=== PATIENT | female | born 1945 | race Caucasian/White ===

== ENCOUNTER → 2019-11-15 | Day surgery (SDC) | payer MEDICARE, BC ==
[~2019-11-15] MED LIST: Atropine 0.4 MG/ML SDV IV ONE; Ketamine 200 MG/20 ML MDV IV ONE; Lactated Ringers 1,000 ML IV SCH; Propofol 200 MG/20 ML SDV IV ONE
[2019-11-15 09:35] VITALS: BP 134/53; PULSE 72
--- NOTE | 2019-11-15 10:56 | OR ---
DATE OF OPERATION: 11/15/2019 PREOPERATIVE DIAGNOSIS: HEMATOCHEZIA. POSTOPERATIVE DIAGNOSIS: HEMATOCHEZIA. SURGEON: Lupillo Carrillo MD PROCEDURE: DIAGNOSTIC COLONOSCOPY. ANESTHESIA: MAC. COMPLICATIONS: None. SPECIMEN: None. FINDINGS: 1. Full-length colonoscopy. 2. [id number] rectosigmoid diverticulosis. 3. Mild perianal hemorrhoid disease. RECOMMENDATIONS: 1. Followup scope in 10 years. 2. Medical followup with provider. INDICATIONS: The patient had a prior colonoscopy about 3 or 4 years ago. She presented for evaluation due to hematochezia and heme-positive stool. Alyson sent her for diagnostic scope. DESCRIPTION OF PROCEDURE: The patient was prepped and draped, placed in a left lateral decubitus position. A lubricated Olympus colonoscope was inserted and with ease advanced to the cecum. Direct visualization of ileocecal valve and appendiceal orifice was accomplished. The bowel prep was adequate. Upon withdrawal of the scope, the cecum, ascending, and transverse colon were completely benign. Throughout the entire left colon, the patient had scattered diverticulosis, moderate to severe in nature, extending all the way to the rectosigmoid junction. I could find no signs of polyps, masses, ulceration, or bleeding sites. No vascular abnormalities or signs of colitis. No inflammatory changes were seen. The rectal vault was benign. There was some mild perianal hemorrhoid disease; otherwise, benign. Air was then suctioned, scope removed without complication. RUMA/NINFA /[id number]
== END ==
LOC: CC.SDS 07:56
PROVIDERS: ATTEND Physician Assistant Medical
DX: K57.30 Diverticulosis of large intestine without perforation or abscess without bleeding (principal); K64.8 Other hemorrhoids; E03.9 Hypothyroidism, unspecified; K21.9 Gastro-esophageal reflux disease without esophagitis; I10 Essential (primary) hypertension; E78.5 Hyperlipidemia, unspecified; E66.9 Obesity, unspecified; E55.9 Vitamin D deficiency, unspecified; M06.9 Rheumatoid arthritis, unspecified; R01.1 Cardiac murmur, unspecified; D52.9 Folate deficiency anemia, unspecified; M85.80 Other specified disorders of bone density and structure, unspecified site; Z79.82 Long term (current) use of aspirin; Z79.899 Other long term (current) drug therapy; Z79.890 Hormone replacement therapy; Z98.890 Other specified postprocedural states; Z68.35 Body mass index [BMI] 35.0-35.9, adult
CPT/HCPCS: J0461; J2704; J7120

== ENCOUNTER 2024-07-06 09:46 | Observation (INO) | payer MEDICARE, BC ==
[2024-07-06 10:55] LABS: BASOPHILS ABSOLUTE AUTO 0.03 10^3/uL (0.00-0.50); BASOPHILS PERCENT AUTO 0.2 % (0-1); EOSINOPHILS ABSOLUTE AUTO 0.03 10^3/uL (0.00-1.50); EOSINOPHILS PERCENT AUTO 0.2 % (0-6); HEMATOCRIT 45.6 % (37.0-47.0); IMMATURE GRAN ABSOLUTE AUTO 0.04 10^3/uL (0.00-0.49); IMMATURE GRAN PERCENT AUTO 0.3 % (0.0-4.9); LYMPHOCYTES PERCENT AUTO 20.3 % (24-44); MEAN CORPUSCULAR HGB CONC 32.9 g/dL (32.0-36.0); MEAN CORPUSCULAR VOLUME 103.4 fL (83.0-97.0); MONOCYTES ABSOLUTE AUTO 1.56 10^3/uL (0.00-1.50); MONOCYTES PERCENT AUTO 12.7 % (0-10); NEUTROPHILS ABSOLUTE AUTO 8.16 x10^3/uL (1.80-8.00); NEUTROPHILS PERCENT AUTO 66.3 % (41-71); PLATELET COUNT,PLT 287 10^3/uL (150-400); RED BLOOD CELL COUNT 4.41 x10^6/uL (4.00-5.50); WHITE BLOOD CELL COUNT,WBC 12.3 10^3/uL (4.0-11.0)
[2024-07-06 11:10] LABS: ALANINE AMINOTRANSFERASE,ALT 36 U/L (12-78); ALBUMIN 2.9 g/dL (3.4-5.0); ALKALINE PHOSPHATASE 69 U/L (46-116); ASPARTATE AMNIOTRANSFERASE,AST 25 U/L (15-37); BILIRUBIN TOTAL 0.7 mg/dL (0.0-1.0); BLOOD UREA NITROGEN,BUN 44 mg/dL (7-18); C-REACTIVE PROTEIN 6.12 mg/dL (<=0.50); CALCIUM 10.3 mg/dL (8.4-10.1); CARBON DIOXIDE,CO2 33 mmol/L (21-32); CHLORIDE,CL 96 mEq/L (98-106); GLUCOSE RANDOM 93 mg/dL (75-99); POTASSIUM,K 3.8 mEq/L (3.5-5.0); PROTEIN TOTAL,TP 6.6 g/dL (6.4-8.2); SODIUM,NA 136 mEq/L (136-145)
[2024-07-06 11:11] LABS: ESTIMATED GFR 25 mL/min (>=60)
[2024-07-06 11:31] LABS: CORONAVIRUS COVID-19 NAA NEGATIVE (NEGATIVE); INFLUENZA A NAA NEGATIVE (NEGATIVE); INFLUENZA B NAA NEGATIVE (NEGATIVE); RESPIRATORY SYNCYTIAL VIR NAA NEGATIVE (NEGATIVE)
[2024-07-06] MEDS ORDERED: Sodium Chloride 0.9% 10 ML Syringe FLUSH PRN (11:45)
[2024-07-06] MEDS ORDERED: Ondansetron 4 MG Tab.DIS PO PRN (15:06)
[2024-07-06] MEDS ORDERED: Ondansetron 4 MG/2 ML SDV IV PRN (15:06)
[2024-07-06] MEDS ORDERED: Acetaminophen 325 MG Tab PO PRN (15:06)
[2024-07-06] MEDS: Sodium Chloride 0.9% 1,000 ML IV SCH (16:32)
[2024-07-06] MEDS: guaiFENesin 200 MG Tab PO SCH (16:32)
[2024-07-06] MEDS: methylPREDNISolone Sodium Succinate 40 MG/1 ML SDV IVPUSH ONE (16:32)
[2024-07-06] MEDS: atorvaSTATin 10 MG Tab PO SCH (19:20)
[2024-07-06] MEDS: Magnesium Oxide 400 MG Tab PO SCH (19:20)
[2024-07-06] MEDS ORDERED: MELATONIN PO SCH (20:00)
[2024-07-07] MEDS: Levothyroxine 88 MCG Tab PO SCH (07:28)
[2024-07-07 07:56] LABS: BASOPHILS ABSOLUTE AUTO 0.02 10^3/uL (0.00-0.50); BASOPHILS PERCENT AUTO 0.2 % (0-1); EOSINOPHILS ABSOLUTE AUTO 0.01 10^3/uL (0.00-1.50); EOSINOPHILS PERCENT AUTO 0.1 % (0-6); HEMATOCRIT 41.1 % (37.0-47.0); HEMOGLOBIN 13.5 g/dL (12.0-16.0); IMMATURE GRAN ABSOLUTE AUTO 0.07 10^3/uL (0.00-0.49); IMMATURE GRAN PERCENT AUTO 0.7 % (0.0-4.9); LYMPHOCYTES ABSOLUTE AUTO 2.46 10^3/uL (0.60-5.00); LYMPHOCYTES PERCENT AUTO 22.9 % (24-44); MEAN CORPUSCULAR HGB CONC 32.8 g/dL (32.0-36.0); MEAN CORPUSCULAR VOLUME 103.5 fL (83.0-97.0); MONOCYTES ABSOLUTE AUTO 0.41 10^3/uL (0.00-1.50); MONOCYTES PERCENT AUTO 3.8 % (0-10); NEUTROPHILS ABSOLUTE AUTO 7.78 x10^3/uL (1.80-8.00); NEUTROPHILS PERCENT AUTO 72.3 % (41-71); PLATELET COUNT,PLT 253 10^3/uL (150-400); RED BLOOD CELL COUNT 3.97 x10^6/uL (4.00-5.50); WHITE BLOOD CELL COUNT,WBC 10.8 10^3/uL (4.0-11.0)
[2024-07-07] MEDS ORDERED: ACETAMINOPHEN 650 MG PO SCH (08:00)
[2024-07-07] MEDS: Aspirin 81 MG Tab.EC PO SCH (08:06)
[2024-07-07] MEDS: Calcium Carbonate/Vitamin D3 1250 MG-5 MCG Tab PO SCH (08:06)
[2024-07-07] MEDS: Losartan 100 MG Tab PO SCH (08:06)
[2024-07-07] MEDS: methylPREDNISolone Sodium Succinate 40 MG/1 ML SDV IVPUSH SCH (08:06)
[2024-07-07] MEDS: Hydrochlorothiazide 25 MG Tab PO SCH (08:06)
[2024-07-07] MEDS: Cholecalciferol (Vitamin D3) 25 MCG Tab PO SCH (08:06)
[2024-07-07] MEDS: Folic Acid 1 MG Tab PO SCH (08:06)
[2024-07-07] MEDS: Allopurinol 100 MG Tab PO SCH (08:06)
[2024-07-07 08:18] LABS: ALBUMIN 2.4 g/dL (3.4-5.0); BILIRUBIN TOTAL 0.4 mg/dL (0.0-1.0); C-REACTIVE PROTEIN 8.28 mg/dL (<=0.50); CALCIUM 9.5 mg/dL (8.4-10.1); CREATININE 1.6 mg/dL (0.6-1.0); EST CRCL DRUG DOSING (CG) 23.97 mL/min; PROTEIN TOTAL,TP 5.8 g/dL (6.4-8.2)
[2024-07-07 12:45] VITALS: BP 118/68; PULSE 68
== END 2024-07-07 12:25 | disposition home or self-care (01) ==
LOC: CC.ED 09:46 → CC.MS 12:22 → UNDOADMOB 12:22 → CC.MS 12:24 → UNDOADMOB 12:30 → CC.MS 12:30 → UNDODISOB 07-07 12:25
PROVIDERS: ADMIT Nurse Practitioner Family; ATTEND Nurse Practitioner Family
DX: N17.9 Acute kidney failure, unspecified (principal); J98.9 Respiratory disorder, unspecified; E78.00 Pure hypercholesterolemia, unspecified; I10 Essential (primary) hypertension; E03.9 Hypothyroidism, unspecified; R05.1 Acute cough; Z20.822 Contact with and (suspected) exposure to COVID-19; Z79.82 Long term (current) use of aspirin; Z79.899 Other long term (current) drug therapy; Z79.890 Hormone replacement therapy
CPT/HCPCS: 0241U; 36415; 71046; 80053; 85025; 86140; 96374; 96376; 99285; A9270-GY; G0378; J2919; J7030

== ENCOUNTER 2024-07-16 12:04 | Inpatient (IN) | payer MEDICARE, BC ==
[2024-07-16] MEDS ORDERED: Sodium Chloride 0.9% 10 ML Syringe FLUSH PRN (14:05)
[2024-07-16] MEDS ORDERED: Ondansetron 4 MG/2 ML SDV IV PRN (14:05)
[2024-07-16] MEDS ORDERED: Ondansetron 4 MG Tab.DIS PO PRN (14:05)
[2024-07-16] MEDS ORDERED: Acetaminophen 650 MG Supp RECTAL PRN (14:05)
[2024-07-16] MEDS: Magnesium Sulf/Wat 2 GM/50 mL 2 GM in Premix Bag 1 BAG IV ONE (14:35)
[2024-07-16 16:45] LABS: APPEARANCE,URINE CLEAR (CLEAR); BILIRUBIN,URINE NEGATIVE (NEGATIVE); COLOR,URINE YELLOW (YELLOW); GLUCOSE,URINE NEGATIVE (NEGATIVE); KETONES,URINE NEGATIVE (NEGATIVE); LEUKOCYTE ESTERASE,URINE MODERATE (NEGATIVE); NITRITE,URINE NEGATIVE (NEGATIVE); OCCULT BLOOD,URINE NEGATIVE (NEGATIVE); PH,URINE 5.5 (4.5-8.0); PROTEIN,URINE NEGATIVE (NEGATIVE); UROBILINOGEN,URINE 0.2 EU/dL (0.2-1.0)
[2024-07-16 16:48] LABS: BACTERIA,URINE FEW /HPF (NOT SEEN); RBC,URINE NOT SEEN /HPF (0-5); SQUAMOUS EPITHELIAL CELLS,UR MANY /HPF (NOT SEEN)
[2024-07-16] MEDS: Potassium Chloride Riders 20 MEQ in Premix Bag 1 BAG IV ONE (17:03)
[2024-07-16] MEDS: NS + KCl 20mEq/L 1,000 ML IV SCH (17:29)
[2024-07-16] MEDS: Sodium Chloride 0.9% 500 ML IV ONE (18:54)
[2024-07-16] MEDS: Magnesium Oxide 400 MG Tab PO SCH (19:57)
[2024-07-16] MEDS: Potassium Chloride 10 MEQ Tab.ER PO SCH (19:57)
[2024-07-16] MEDS: Methotrexate 2.5 MG Tab PO SCH (19:58)
[2024-07-16] MEDS: atorvaSTATin 10 MG Tab PO SCH (19:58)
[2024-07-17] MEDS: Acetaminophen 325 MG Tab PO PRN (01:39)
[2024-07-17] MEDS: Levothyroxine 88 MCG Tab PO SCH (06:10)
[2024-07-17 07:53] LABS: BASOPHILS ABSOLUTE AUTO 0.06 10^3/uL (0.00-0.50); BASOPHILS PERCENT AUTO 0.7 % (0-1); EOSINOPHILS ABSOLUTE AUTO 0.12 10^3/uL (0.00-1.50); EOSINOPHILS PERCENT AUTO 1.4 % (0-6); HEMATOCRIT 35.2 % (37.0-47.0); HEMOGLOBIN 11.6 g/dL (12.0-16.0); IMMATURE GRAN ABSOLUTE AUTO 0.02 10^3/uL (0.00-0.49); IMMATURE GRAN PERCENT AUTO 0.2 % (0.0-4.9); LYMPHOCYTES ABSOLUTE AUTO 2.12 10^3/uL (0.60-5.00); MEAN CORPUSCULAR HEMOGLOBIN 34.2 pg (27.0-32.0); MEAN CORPUSCULAR VOLUME 103.8 fL (83.0-97.0); MONOCYTES PERCENT AUTO 10.2 % (0-10); NEUTROPHILS ABSOLUTE AUTO 5.61 x10^3/uL (1.80-8.00); NEUTROPHILS PERCENT AUTO 63.5 % (41-71); PLATELET COUNT,PLT 203 10^3/uL (150-400); RED BLOOD CELL COUNT 3.39 x10^6/uL (4.00-5.50); WHITE BLOOD CELL COUNT,WBC 8.8 10^3/uL (4.0-11.0)
[2024-07-17 08:04] LABS: ALBUMIN 1.9 g/dL (3.4-5.0); BILIRUBIN TOTAL 0.4 mg/dL (0.0-1.0); C-REACTIVE PROTEIN 11.49 mg/dL (<=0.50); CALCIUM 8.8 mg/dL (8.4-10.1); CREATININE 1.3 mg/dL (0.6-1.0); EST CRCL DRUG DOSING (CG) 29.5 mL/min; MAGNESIUM 1.8 mg/dL (1.8-2.4); POTASSIUM,K 3.3 mEq/L (3.5-5.0); PROTEIN TOTAL,TP 5.2 g/dL (6.4-8.2)
[2024-07-17] MEDS: Allopurinol 100 MG Tab PO SCH (08:34)
[2024-07-17] MEDS: Magnesium Oxide 400 MG Tab PO SCH (08:34)
[2024-07-17] MEDS: Cholecalciferol (Vitamin D3) 25 MCG Tab PO SCH (08:34)
[2024-07-17] MEDS: Calcium Carbonate/Vitamin D3 1250 MG-5 MCG Tab PO SCH (08:34)
[2024-07-17] MEDS: Hydrochlorothiazide 25 MG Tab PO SCH (08:39)
[2024-07-17] MEDS: Losartan 100 MG Tab PO SCH (08:39)
[2024-07-17] MEDS: Enoxaparin 40 MG/0.4 ML Syringe SUBCUT SCH (12:02)
[2024-07-17 12:50] LABS: CORONAVIRUS COVID-19 NAA NEGATIVE (NEGATIVE); INFLUENZA A NAA NEGATIVE (NEGATIVE); INFLUENZA B NAA NEGATIVE (NEGATIVE); RESPIRATORY SYNCYTIAL VIR NAA NEGATIVE (NEGATIVE)
[2024-07-17] MEDS: Cefuroxime 250 MG Tab PO SCH (17:10)
[2024-07-18] MEDS: Lactobacillus Rhamnosus GG (Probiotic) Cap PO SCH (07:34)
[2024-07-18] MEDS: Folic Acid 1 MG Tab PO SCH (07:34)
[2024-07-18 08:56] LABS: APPEARANCE,URINE SLIGHTLY CLOUDY (CLEAR); BILIRUBIN,URINE NEGATIVE (NEGATIVE); COLOR,URINE YELLOW (YELLOW); GLUCOSE,URINE NEGATIVE (NEGATIVE); KETONES,URINE NEGATIVE (NEGATIVE); LEUKOCYTE ESTERASE,URINE LARGE (NEGATIVE); NITRITE,URINE NEGATIVE (NEGATIVE); OCCULT BLOOD,URINE NEGATIVE (NEGATIVE); PH,URINE 8.5 (4.5-8.0); PROTEIN,URINE NEGATIVE (NEGATIVE); UROBILINOGEN,URINE 0.2 EU/dL (0.2-1.0)
[2024-07-18 09:04] LABS: BACTERIA,URINE FEW /HPF (NOT SEEN); RBC,URINE 0-5 /HPF (0-5); SQUAMOUS EPITHELIAL CELLS,UR FEW /HPF (NOT SEEN); WBC,URINE 50-75 /HPF (0-5)
[2024-07-18 09:20] LABS: BASOPHILS ABSOLUTE AUTO 0.05 10^3/uL (0.00-0.50); BASOPHILS PERCENT AUTO 0.5 % (0-1); EOSINOPHILS ABSOLUTE AUTO 0.15 10^3/uL (0.00-1.50); EOSINOPHILS PERCENT AUTO 1.4 % (0-6); HEMATOCRIT 41.7 % (37.0-47.0); HEMOGLOBIN 13.3 g/dL (12.0-16.0); IMMATURE GRAN ABSOLUTE AUTO 0.01 10^3/uL (0.00-0.49); IMMATURE GRAN PERCENT AUTO 0.1 % (0.0-4.9); LYMPHOCYTES ABSOLUTE AUTO 2.52 10^3/uL (0.60-5.00); LYMPHOCYTES PERCENT AUTO 23.5 % (24-44); MEAN CORPUSCULAR HEMOGLOBIN 33.5 pg (27.0-32.0); MEAN CORPUSCULAR HGB CONC 31.9 g/dL (32.0-36.0); MONOCYTES ABSOLUTE AUTO 0.96 10^3/uL (0.00-1.50); NEUTROPHILS ABSOLUTE AUTO 7.02 x10^3/uL (1.80-8.00); NEUTROPHILS PERCENT AUTO 65.5 % (41-71); PLATELET COUNT,PLT 217 10^3/uL (150-400); RED BLOOD CELL COUNT 3.97 x10^6/uL (4.00-5.50); WHITE BLOOD CELL COUNT,WBC 10.7 10^3/uL (4.0-11.0)
[2024-07-18 10:51] LABS: ALBUMIN 2.2 g/dL (3.4-5.0); BILIRUBIN TOTAL 0.5 mg/dL (0.0-1.0); CALCIUM 9.7 mg/dL (8.4-10.1); CREATININE 1.3 mg/dL (0.6-1.0); EST CRCL DRUG DOSING (CG) 29.5 mL/min; POTASSIUM,K 4.1 mEq/L (3.5-5.0)
[2024-07-18] MEDS: Sodium Chloride 0.9% 500 ML IV SCH (11:37)
[2024-07-18] MEDS: cefTRIAXone 1 GM Vial IVPUSH SCH (11:37)
[2024-07-18] MEDS: Benzonatate 100 MG Cap PO PRN (20:44)
[2024-07-19 07:40] LABS: BASOPHILS ABSOLUTE AUTO 0.06 10^3/uL (0.00-0.50); BASOPHILS PERCENT AUTO 0.7 % (0-1); EOSINOPHILS PERCENT AUTO 2.2 % (0-6); HEMOGLOBIN 13.2 g/dL (12.0-16.0); IMMATURE GRAN ABSOLUTE AUTO 0.03 10^3/uL (0.00-0.49); IMMATURE GRAN PERCENT AUTO 0.3 % (0.0-4.9); LYMPHOCYTES ABSOLUTE AUTO 2.37 10^3/uL (0.60-5.00); LYMPHOCYTES PERCENT AUTO 25.8 % (24-44); MEAN CORPUSCULAR HEMOGLOBIN 33.8 pg (27.0-32.0); MEAN CORPUSCULAR HGB CONC 32.2 g/dL (32.0-36.0); MEAN CORPUSCULAR VOLUME 105.1 fL (83.0-97.0); MONOCYTES ABSOLUTE AUTO 0.94 10^3/uL (0.00-1.50); MONOCYTES PERCENT AUTO 10.2 % (0-10); NEUTROPHILS PERCENT AUTO 60.8 % (41-71); PLATELET COUNT,PLT 212 10^3/uL (150-400); WHITE BLOOD CELL COUNT,WBC 9.2 10^3/uL (4.0-11.0)
[2024-07-19 08:13] LABS: BILIRUBIN TOTAL 0.5 mg/dL (0.0-1.0); CALCIUM 9.4 mg/dL (8.4-10.1); CREATININE 1.2 mg/dL (0.6-1.0); EST CRCL DRUG DOSING (CG) 31.96 mL/min; MAGNESIUM 1.5 mg/dL (1.8-2.4); POTASSIUM,K 4.8 mEq/L (3.5-5.0); PROTEIN TOTAL,TP 5.9 g/dL (6.4-8.2)
[2024-07-19] MEDS: Magnesium Sulf/Wat 2 GM/50 mL 2 GM in Premix Bag 1 BAG IV ONE (10:27)
[2024-07-20 09:13] VITALS: BP 138/88; PULSE 81
[2024-07-20 09:42] LABS: BASOPHILS ABSOLUTE AUTO 0.05 10^3/uL (0.00-0.50); BASOPHILS PERCENT AUTO 0.6 % (0-1); EOSINOPHILS ABSOLUTE AUTO 0.14 10^3/uL (0.00-1.50); EOSINOPHILS PERCENT AUTO 1.6 % (0-6); HEMATOCRIT 41.8 % (37.0-47.0); HEMOGLOBIN 13.4 g/dL (12.0-16.0); IMMATURE GRAN ABSOLUTE AUTO 0.02 10^3/uL (0.00-0.49); IMMATURE GRAN PERCENT AUTO 0.2 % (0.0-4.9); LYMPHOCYTES ABSOLUTE AUTO 1.84 10^3/uL (0.60-5.00); LYMPHOCYTES PERCENT AUTO 21.7 % (24-44); MEAN CORPUSCULAR HEMOGLOBIN 33.8 pg (27.0-32.0); MEAN CORPUSCULAR HGB CONC 32.1 g/dL (32.0-36.0); MEAN CORPUSCULAR VOLUME 105.3 fL (83.0-97.0); MONOCYTES ABSOLUTE AUTO 0.86 10^3/uL (0.00-1.50); MONOCYTES PERCENT AUTO 10.1 % (0-10); NEUTROPHILS ABSOLUTE AUTO 5.58 x10^3/uL (1.80-8.00); NEUTROPHILS PERCENT AUTO 65.8 % (41-71); PLATELET COUNT,PLT 236 10^3/uL (150-400); RED BLOOD CELL COUNT 3.97 x10^6/uL (4.00-5.50); WHITE BLOOD CELL COUNT,WBC 8.5 10^3/uL (4.0-11.0)
[2024-07-20 09:50] LABS: CALCIUM 9.6 mg/dL (8.4-10.1); CREATININE 1.3 mg/dL (0.6-1.0); EST CRCL DRUG DOSING (CG) 29.5 mL/min; MAGNESIUM 1.8 mg/dL (1.8-2.4); POTASSIUM,K 5.4 mEq/L (3.5-5.0)
== END 2024-07-20 11:15 | disposition home or self-care (01) | DRG 948 ==
LOC: CC.MS 12:04 → UNDOADMOB 13:54 → CC.MS 13:54 → OBSVTOIN 07-17 12:04
PROVIDERS: ADMIT Physician Assistant Medical; ATTEND Nurse Practitioner
DX: R53.1 Weakness (principal); N30.01 Acute cystitis with hematuria; E83.42 Hypomagnesemia; E87.6 Hypokalemia; J01.90 Acute sinusitis, unspecified; I95.9 Hypotension, unspecified; I10 Essential (primary) hypertension; K21.9 Gastro-esophageal reflux disease without esophagitis; E78.00 Pure hypercholesterolemia, unspecified; M19.90 Unspecified osteoarthritis, unspecified site; D50.9 Iron deficiency anemia, unspecified; E03.9 Hypothyroidism, unspecified; Z79.890 Hormone replacement therapy; Z79.899 Other long term (current) drug therapy
CPT/HCPCS: 0241U; 36415; 70486; 70553; 71250; 80048; 80053; 81001; 82533; 83605; 83735; 85025; 85651; 86140; 87040; 87086; 87088; 96361; 96365; 96366; 96372; 97110-GP; 97161-GP; 99223; 99232; 99233; 99238; A9270-GY; A9579; G0378; J0696; J1650; J3475; J3480; J7040; J8610

== ENCOUNTER 2024-07-31 09:43 | Inpatient (IN) | payer MEDICARE, BC ==
[2024-07-31 10:24] LABS: BASOPHILS ABSOLUTE AUTO 0.04 10^3/uL (0.00-0.50); BASOPHILS PERCENT AUTO 0.3 % (0-1); EOSINOPHILS ABSOLUTE AUTO 0.05 10^3/uL (0.00-1.50); EOSINOPHILS PERCENT AUTO 0.4 % (0-6); HEMATOCRIT 42.1 % (37.0-47.0); HEMOGLOBIN 13.6 g/dL (12.0-16.0); IMMATURE GRAN ABSOLUTE AUTO 0.04 10^3/uL (0.00-0.49); IMMATURE GRAN PERCENT AUTO 0.3 % (0.0-4.9); LYMPHOCYTES ABSOLUTE AUTO 1.05 10^3/uL (0.60-5.00); LYMPHOCYTES PERCENT AUTO 9.1 % (24-44); MEAN CORPUSCULAR HEMOGLOBIN 32.8 pg (27.0-32.0); MEAN CORPUSCULAR HGB CONC 32.3 g/dL (32.0-36.0); MEAN CORPUSCULAR VOLUME 101.4 fL (83.0-97.0); MONOCYTES ABSOLUTE AUTO 0.75 10^3/uL (0.00-1.50); MONOCYTES PERCENT AUTO 6.5 % (0-10); NEUTROPHILS ABSOLUTE AUTO 9.59 x10^3/uL (1.80-8.00); NEUTROPHILS PERCENT AUTO 83.4 % (41-71); PLATELET COUNT,PLT 310 10^3/uL (150-400); RED BLOOD CELL COUNT 4.15 x10^6/uL (4.00-5.50); WHITE BLOOD CELL COUNT,WBC 11.5 10^3/uL (4.0-11.0)
[2024-07-31 10:52] LABS: ALBUMIN 2.3 g/dL (3.4-5.0); BILIRUBIN TOTAL 0.6 mg/dL (0.0-1.0); C-REACTIVE PROTEIN 11.09 mg/dL (<=0.50); CALCIUM 9.5 mg/dL (8.4-10.1); CREATININE 1.3 mg/dL (0.6-1.0); EST CRCL DRUG DOSING (CG) 29.5 mL/min; MAGNESIUM 1.5 mg/dL (1.8-2.4); POTASSIUM,K 3.8 mEq/L (3.5-5.0); PROTEIN TOTAL,TP 6.5 g/dL (6.4-8.2)
[2024-07-31] MEDS: Iopamidol 755 Mg/ML 100 ML Bottle IVPUSH ONE (12:04)
[2024-07-31 12:44] LABS: APPEARANCE,URINE SLIGHTLY CLOUDY (CLEAR); BILIRUBIN,URINE NEGATIVE (NEGATIVE); COLOR,URINE YELLOW (YELLOW); GLUCOSE,URINE NEGATIVE (NEGATIVE); KETONES,URINE NEGATIVE (NEGATIVE); LEUKOCYTE ESTERASE,URINE SMALL (NEGATIVE); NITRITE,URINE NEGATIVE (NEGATIVE); OCCULT BLOOD,URINE NEGATIVE (NEGATIVE); PH,URINE 5.5 (4.5-8.0); PROTEIN,URINE NEGATIVE (NEGATIVE); UROBILINOGEN,URINE 0.2 EU/dL (0.2-1.0)
[2024-07-31 12:57] LABS: BACTERIA,URINE FEW /HPF (NOT SEEN); EPITHELIAL CELLS,URINE MODERATE /HPF (NOT SEEN); RBC,URINE 0-5 /HPF (0-5); WBC,URINE 20-30 /HPF (0-5)
[2024-07-31] MEDS: Sodium Chloride 0.9% 500 ML IV SCH (14:27)
[2024-07-31] MEDS ORDERED: Ondansetron 4 MG/2 ML SDV IV PRN (15:51)
[2024-07-31] MEDS ORDERED: Docusate Sodium 100 MG Cap PO PRN (15:51)
[2024-07-31] MEDS ORDERED: Acetaminophen 325 MG Tab PO PRN (15:51)
[2024-07-31] MEDS ORDERED: Sodium Chloride 0.9% 1,000 ML IV SCH (15:51)
[2024-07-31] MEDS ORDERED: Ondansetron 4 MG Tab.DIS PO PRN (15:51)
[2024-07-31] MEDS: Clindamycin Phosphate in D5W 600 MG in Premix Bag 1 BAG IV SCH (16:19)
[2024-07-31] MEDS: diphenhydrAMINE 25 MG Cap PO SCH (20:46)
[2024-07-31] MEDS: Benzonatate 100 MG Cap PO SCH (20:47)
[2024-07-31] MEDS: Acetaminophen 500 MG Tab PO SCH (20:47)
[2024-08-01] MEDS: Levothyroxine 88 MCG Tab PO SCH (06:07)
[2024-08-01 07:36] LABS: BASOPHILS ABSOLUTE AUTO 0.02 10^3/uL (0.00-0.50); BASOPHILS PERCENT AUTO 0.2 % (0-1); EOSINOPHILS ABSOLUTE AUTO 0.01 10^3/uL (0.00-1.50); EOSINOPHILS PERCENT AUTO 0.1 % (0-6); HEMOGLOBIN 11.7 g/dL (12.0-16.0); IMMATURE GRAN ABSOLUTE AUTO 0.07 10^3/uL (0.00-0.49); IMMATURE GRAN PERCENT AUTO 0.7 % (0.0-4.9); LYMPHOCYTES ABSOLUTE AUTO 1.74 10^3/uL (0.60-5.00); LYMPHOCYTES PERCENT AUTO 17.5 % (24-44); MEAN CORPUSCULAR HGB CONC 32.5 g/dL (32.0-36.0); MEAN CORPUSCULAR VOLUME 101.4 fL (83.0-97.0); MONOCYTES ABSOLUTE AUTO 0.94 10^3/uL (0.00-1.50); MONOCYTES PERCENT AUTO 9.5 % (0-10); NEUTROPHILS ABSOLUTE AUTO 7.15 x10^3/uL (1.80-8.00); PLATELET COUNT,PLT 280 10^3/uL (150-400); RED BLOOD CELL COUNT 3.55 x10^6/uL (4.00-5.50); WHITE BLOOD CELL COUNT,WBC 9.9 10^3/uL (4.0-11.0)
[2024-08-01 07:57] LABS: C-REACTIVE PROTEIN 9.24 mg/dL (<=0.50); CALCIUM 8.9 mg/dL (8.4-10.1); CREATININE 1.1 mg/dL (0.6-1.0); EST CRCL DRUG DOSING (CG) 34.87 mL/min; POTASSIUM,K 3.7 mEq/L (3.5-5.0)
[2024-08-01] MEDS: Calcium Carbonate/Vitamin D3 1250 MG-5 MCG Tab PO SCH (07:57)
[2024-08-01] MEDS: Dexamethasone 4 MG Tab PO SCH (07:57)
[2024-08-01] MEDS: Lactobacillus Rhamnosus GG (Probiotic) Cap PO SCH (07:57)
[2024-08-01] MEDS: Cholecalciferol (Vitamin D3) 25 MCG Tab PO SCH (07:57)
[2024-08-01] MEDS: MAGNESIUM GLYCINATE 665 MG PO SCH (07:59)
[2024-08-01] MEDS: Enoxaparin 30 MG/0.3 ML Syringe SUBCUT SCH (11:34)
[2024-08-02 07:42] LABS: BASOPHILS ABSOLUTE AUTO 0.03 10^3/uL (0.00-0.50); BASOPHILS PERCENT AUTO 0.3 % (0-1); EOSINOPHILS ABSOLUTE AUTO 0.02 10^3/uL (0.00-1.50); EOSINOPHILS PERCENT AUTO 0.2 % (0-6); HEMATOCRIT 34.8 % (37.0-47.0); HEMOGLOBIN 11.4 g/dL (12.0-16.0); IMMATURE GRAN ABSOLUTE AUTO 0.07 10^3/uL (0.00-0.49); IMMATURE GRAN PERCENT AUTO 0.7 % (0.0-4.9); LYMPHOCYTES ABSOLUTE AUTO 1.55 10^3/uL (0.60-5.00); MEAN CORPUSCULAR HEMOGLOBIN 32.9 pg (27.0-32.0); MEAN CORPUSCULAR HGB CONC 32.8 g/dL (32.0-36.0); MEAN CORPUSCULAR VOLUME 100.3 fL (83.0-97.0); MONOCYTES ABSOLUTE AUTO 0.93 10^3/uL (0.00-1.50); MONOCYTES PERCENT AUTO 9.6 % (0-10); NEUTROPHILS ABSOLUTE AUTO 7.06 x10^3/uL (1.80-8.00); NEUTROPHILS PERCENT AUTO 73.2 % (41-71); PLATELET COUNT,PLT 300 10^3/uL (150-400); RED BLOOD CELL COUNT 3.47 x10^6/uL (4.00-5.50); WHITE BLOOD CELL COUNT,WBC 9.7 10^3/uL (4.0-11.0)
[2024-08-02 07:49] LABS: C-REACTIVE PROTEIN 4.68 mg/dL (<=0.50); CALCIUM 9.2 mg/dL (8.4-10.1); CREATININE 1.1 mg/dL (0.6-1.0); EST CRCL DRUG DOSING (CG) 34.87 mL/min; POTASSIUM,K 3.9 mEq/L (3.5-5.0)
[2024-08-03] MEDS: Clindamycin HCl 150 MG Cap PO SCH (05:03)
[2024-08-03] MEDS ORDERED: Clindamycin HCl 150 MG Cap PO SCH (06:00)
[2024-08-03 07:43] LABS: BASOPHILS ABSOLUTE AUTO 0.02 10^3/uL (0.00-0.50); BASOPHILS PERCENT AUTO 0.2 % (0-1); EOSINOPHILS ABSOLUTE AUTO 0.02 10^3/uL (0.00-1.50); EOSINOPHILS PERCENT AUTO 0.2 % (0-6); HEMATOCRIT 39.6 % (37.0-47.0); HEMOGLOBIN 12.7 g/dL (12.0-16.0); IMMATURE GRAN PERCENT AUTO 1.9 % (0.0-4.9); LYMPHOCYTES ABSOLUTE AUTO 1.98 10^3/uL (0.60-5.00); LYMPHOCYTES PERCENT AUTO 19.3 % (24-44); MEAN CORPUSCULAR HEMOGLOBIN 32.7 pg (27.0-32.0); MEAN CORPUSCULAR HGB CONC 32.1 g/dL (32.0-36.0); MEAN CORPUSCULAR VOLUME 102.1 fL (83.0-97.0); MONOCYTES ABSOLUTE AUTO 1.21 10^3/uL (0.00-1.50); MONOCYTES PERCENT AUTO 11.8 % (0-10); NEUTROPHILS ABSOLUTE AUTO 6.85 x10^3/uL (1.80-8.00); NEUTROPHILS PERCENT AUTO 66.6 % (41-71); PLATELET COUNT,PLT 345 10^3/uL (150-400); RED BLOOD CELL COUNT 3.88 x10^6/uL (4.00-5.50); WHITE BLOOD CELL COUNT,WBC 10.3 10^3/uL (4.0-11.0)
[2024-08-03 07:50] LABS: C-REACTIVE PROTEIN 2.73 mg/dL (<=0.50); CALCIUM 9.4 mg/dL (8.4-10.1); CREATININE 1.2 mg/dL (0.6-1.0); EST CRCL DRUG DOSING (CG) 31.96 mL/min; POTASSIUM,K 4.3 mEq/L (3.5-5.0)
[2024-08-03] MEDS ORDERED: Lactobacillus Rhamnosus GG (Probiotic) Cap PO SCH (08:00)
[2024-08-03 08:22] VITALS: BP 127/72; PULSE 58
== END 2024-08-03 10:30 | disposition home or self-care (01) | DRG 159 ==
LOC: SUPCPDRO 09:43 → CC.ED 09:43 → CC.MS 15:02
PROVIDERS: ADMIT Nurse Practitioner Family; ATTEND Nurse Practitioner Family
DX: K04.7 Periapical abscess without sinus (principal); I88.9 Nonspecific lymphadenitis, unspecified; R53.1 Weakness; H26.9 Unspecified cataract; E78.00 Pure hypercholesterolemia, unspecified; I10 Essential (primary) hypertension; K21.9 Gastro-esophageal reflux disease without esophagitis; M19.90 Unspecified osteoarthritis, unspecified site; E03.9 Hypothyroidism, unspecified; D64.9 Anemia, unspecified; E53.8 Deficiency of other specified B group vitamins; E61.1 Iron deficiency; Z79.899 Other long term (current) drug therapy
CPT/HCPCS: 36415; 70491; 71045; 80048; 80053; 81001; 83735; 83880; 84484; 85025; 85651; 86140; 87086; 93005; 93010; 96360; 97110-GP; 97161-GP; 99223; 99232; 99233; 99238; 99285-25; A9270-GY; J0736; J1650; J7040; J8540; Q9967

== ENCOUNTER 2024-08-14 13:27 | Observation (INO) | payer MEDICARE, BC ==
[2024-08-14 13:49] LABS: BASOPHILS ABSOLUTE AUTO 0.05 10^3/uL (0.00-0.50); BASOPHILS PERCENT AUTO 0.5 % (0-1); EOSINOPHILS ABSOLUTE AUTO 0.02 10^3/uL (0.00-1.50); EOSINOPHILS PERCENT AUTO 0.2 % (0-6); HEMATOCRIT 39.6 % (37.0-47.0); HEMOGLOBIN 12.5 g/dL (12.0-16.0); IMMATURE GRAN ABSOLUTE AUTO 0.02 10^3/uL (0.00-0.49); IMMATURE GRAN PERCENT AUTO 0.2 % (0.0-4.9); LYMPHOCYTES ABSOLUTE AUTO 1.29 10^3/uL (0.60-5.00); LYMPHOCYTES PERCENT AUTO 13.1 % (24-44); MEAN CORPUSCULAR HEMOGLOBIN 32.3 pg (27.0-32.0); MEAN CORPUSCULAR HGB CONC 31.6 g/dL (32.0-36.0); MEAN CORPUSCULAR VOLUME 102.3 fL (83.0-97.0); MONOCYTES ABSOLUTE AUTO 0.65 10^3/uL (0.00-1.50); MONOCYTES PERCENT AUTO 6.6 % (0-10); NEUTROPHILS ABSOLUTE AUTO 7.83 x10^3/uL (1.80-8.00); NEUTROPHILS PERCENT AUTO 79.4 % (41-71); PLATELET COUNT,PLT 153 10^3/uL (150-400); RED BLOOD CELL COUNT 3.87 x10^6/uL (4.00-5.50); WHITE BLOOD CELL COUNT,WBC 9.9 10^3/uL (4.0-11.0)
[2024-08-14 14:02] LABS: ALANINE AMINOTRANSFERASE,ALT 42 U/L (12-78); ALBUMIN 2.2 g/dL (3.4-5.0); ALKALINE PHOSPHATASE 121 U/L (46-116); ASPARTATE AMNIOTRANSFERASE,AST 39 U/L (15-37); BILIRUBIN TOTAL 0.6 mg/dL (0.0-1.0); BLOOD UREA NITROGEN,BUN 22 mg/dL (7-18); C-REACTIVE PROTEIN 11.97 mg/dL (<=0.50); CALCIUM 9.3 mg/dL (8.4-10.1); CARBON DIOXIDE,CO2 27 mmol/L (21-32); CHLORIDE,CL 101 mEq/L (98-106); CREATININE 1.3 mg/dL (0.6-1.0); ESTIMATED GFR 42 mL/min (>=60); GLUCOSE RANDOM 122 mg/dL (75-99); MAGNESIUM 1.8 mg/dL (1.8-2.4); SODIUM,NA 137 mEq/L (136-145)
[2024-08-14] MEDS ORDERED: Acetaminophen 325 MG Tab PO PRN (14:06)
[2024-08-14] MEDS ORDERED: Docusate Sodium 100 MG Cap PO PRN (14:06)
[2024-08-14] MEDS ORDERED: Ondansetron 4 MG/2 ML SDV IV PRN (14:06)
[2024-08-14] MEDS ORDERED: Ondansetron 4 MG Tab.DIS PO PRN (14:06)
[2024-08-14] MEDS ORDERED: Polyethylene Glycol 3350 Powder 17 GM Packet PO PRN (14:06)
[2024-08-14] MEDS ORDERED: Benzonatate 100 MG Cap PO PRN (14:08)
[2024-08-14] MEDS ORDERED: traMADol 50 MG Tab PO PRN (14:15)
[2024-08-14] MEDS: Amoxicillin/Clavulanate K 500-125 MG Tab PO SCH (15:35)
[2024-08-14] MEDS: Iopamidol 755 Mg/ML 100 ML Bottle IVPUSH ONE (17:42)
[2024-08-14] MEDS: metroNIDAZOLE/Normal Saline 500 MG in Premix Bag 1 BAG IV SCH (17:59)
[2024-08-14] MEDS: Piperacillin/Tazobactam 4.5 GM in Sodium Chloride 0.9% 100 ML IV ONE (19:06)
[2024-08-14] MEDS: Acetaminophen 500 MG Tab PO SCH (20:13)
[2024-08-14] MEDS: diphenhydrAMINE 25 MG Cap PO SCH (20:14)
[2024-08-14] MEDS: Sodium Chloride 0.9% 1,000 ML IV SCH (21:00)
[2024-08-14] MEDS: Piperacillin/Tazobactam 4.5 GM in Sodium Chloride 0.9% 100 ML IV SCH (21:10)
[2024-08-15] MEDS: Levothyroxine 88 MCG Tab PO SCH (06:17)
[2024-08-15 07:15] LABS: APPEARANCE,URINE CLOUDY (CLEAR); BILIRUBIN,URINE NEGATIVE (NEGATIVE); COLOR,URINE YELLOW (YELLOW); GLUCOSE,URINE NEGATIVE (NEGATIVE); KETONES,URINE NEGATIVE (NEGATIVE); LEUKOCYTE ESTERASE,URINE NEGATIVE (NEGATIVE); NITRITE,URINE NEGATIVE (NEGATIVE); OCCULT BLOOD,URINE NEGATIVE (NEGATIVE); PROTEIN,URINE 30 mg/dL (NEGATIVE); UROBILINOGEN,URINE 0.2 EU/dL (0.2-1.0)
[2024-08-15 07:25] LABS: AMORPHOUS SEDIMENT,URINE MODERATE /HPF (NOT SEEN); EPITHELIAL CELLS,URINE NOT SEEN /HPF (NOT SEEN); RBC,URINE NOT SEEN /HPF (0-5); WBC,URINE NOT SEEN /HPF (0-5)
[2024-08-15 07:30] LABS: BILIRUBIN TOTAL 0.6 mg/dL (0.0-1.0); CALCIUM 8.9 mg/dL (8.4-10.1); CREATININE 1.1 mg/dL (0.6-1.0); EST CRCL DRUG DOSING (CG) 34.87 mL/min; MAGNESIUM 1.8 mg/dL (1.8-2.4); POTASSIUM,K 3.8 mEq/L (3.5-5.0); PROTEIN TOTAL,TP 5.6 g/dL (6.4-8.2)
[2024-08-15] MEDS: Cholecalciferol (Vitamin D3) 25 MCG Tab PO SCH (07:44)
[2024-08-15] MEDS: Lactobacillus Rhamnosus GG (Probiotic) Cap PO SCH (07:44)
[2024-08-15] MEDS: Calcium Carbonate/Vitamin D3 1250 MG-5 MCG Tab PO SCH (07:44)
[2024-08-15 07:48] LABS: BASOPHILS ABSOLUTE AUTO 0.03 10^3/uL (0.00-0.50); BASOPHILS PERCENT AUTO 0.5 % (0-1); EOSINOPHILS ABSOLUTE AUTO 0.07 10^3/uL (0.00-1.50); EOSINOPHILS PERCENT AUTO 1.1 % (0-6); HEMATOCRIT 38.7 % (37.0-47.0); HEMOGLOBIN 12.1 g/dL (12.0-16.0); IMMATURE GRAN ABSOLUTE AUTO 0.01 10^3/uL (0.00-0.49); IMMATURE GRAN PERCENT AUTO 0.2 % (0.0-4.9); LYMPHOCYTES ABSOLUTE AUTO 0.99 10^3/uL (0.60-5.00); LYMPHOCYTES PERCENT AUTO 16.1 % (24-44); MEAN CORPUSCULAR HGB CONC 31.3 g/dL (32.0-36.0); MEAN CORPUSCULAR VOLUME 102.4 fL (83.0-97.0); MONOCYTES ABSOLUTE AUTO 0.42 10^3/uL (0.00-1.50); MONOCYTES PERCENT AUTO 6.8 % (0-10); NEUTROPHILS ABSOLUTE AUTO 4.63 x10^3/uL (1.80-8.00); NEUTROPHILS PERCENT AUTO 75.3 % (41-71); PLATELET COUNT,PLT 150 10^3/uL (150-400); RED BLOOD CELL COUNT 3.78 x10^6/uL (4.00-5.50); WHITE BLOOD CELL COUNT,WBC 6.2 10^3/uL (4.0-11.0)
[2024-08-15] MEDS: MAGNESIUM GLYCINATE 665 MG PO SCH (10:17)
[2024-08-15 11:09] VITALS: BP 133/74; PULSE 72
[2024-08-15] MEDS ORDERED: MAGNESIUM GLYCINATE 665 MG PO SCH (20:00)
== END 2024-08-15 16:50 ==
LOC: INTOOBSV 13:27 → CC.MS 13:27
PROVIDERS: ADMIT Nurse Practitioner; ATTEND Nurse Practitioner
DX: K04.7 Periapical abscess without sinus (principal); M27.2 Inflammatory conditions of jaws; R53.1 Weakness; I10 Essential (primary) hypertension; E78.00 Pure hypercholesterolemia, unspecified; K21.9 Gastro-esophageal reflux disease without esophagitis; E03.9 Hypothyroidism, unspecified; Z79.890 Hormone replacement therapy; Z79.899 Other long term (current) drug therapy
CPT/HCPCS: 36415; 70487; 80053; 81001; 83605; 83735; 85025; 86140; 87040; 96361; 96365; 96366; 96367; 96368; A9270-GY; G0378; J1836; J2543; J7030; Q9967

== ENCOUNTER 2024-08-30 13:32 | Inpatient (IN) | payer MEDICARE, BC ==
[2024-08-30] MEDS ORDERED: Ondansetron 4 MG/2 ML SDV IV PRN (13:56)
[2024-08-30] MEDS ORDERED: Polyethylene Glycol 3350 Powder 17 GM Packet PO PRN (13:56)
[2024-08-30] MEDS ORDERED: Ondansetron 4 MG Tab.DIS PO PRN (13:56)
[2024-08-30] MEDS ORDERED: Docusate Sodium 100 MG Cap PO PRN (13:56)
[2024-08-30] MEDS ORDERED: Ampicillin/Sulbactam 3 GM Vial IVPUSH SCH (14:00)
[2024-08-30] MEDS: Ampicillin/Sulbactam Na 3 GM in Sodium Chloride 0.9% 100 ML IV SCH (14:50)
[2024-08-30] MEDS ORDERED: traMADol 50 MG Tab PO PRN (15:09)
[2024-08-30] MEDS ORDERED: Chlorhexidine Gluconate 0.12% Oral Rinse 15 ML Cup MUCMEM SCH (20:00)
[2024-08-30] MEDS: atorvaSTATin 10 MG Tab PO SCH (20:04)
[2024-08-30] MEDS: Sennosides/Docusate Sodium 50-8.6 MG Tab PO SCH (20:04)
[2024-08-30] MEDS: Bacitracin Oint 1 GM U/D Packet TOP SCH (20:45)
[2024-08-30] MEDS: Chlorhexidine Gluconate 0.12% Oral Rinse 15 ML Cup MUCMEM SCH (20:53)
[2024-08-30] MEDS: diphenhydrAMINE 25 MG Cap PO SCH (20:53)
[2024-08-30] MEDS: Acetaminophen 500 MG Tab PO SCH (20:53)
[2024-08-31] MEDS: Levothyroxine 88 MCG Tab PO SCH (06:33)
[2024-08-31] MEDS: Cholecalciferol (Vitamin D3) 25 MCG Tab PO SCH (08:03)
[2024-08-31] MEDS: Allopurinol 100 MG Tab PO SCH (08:04)
[2024-08-31] MEDS: Lactobacillus Rhamnosus GG (Probiotic) Cap PO SCH (08:04)
[2024-08-31] MEDS: Metoprolol Succinate 25 MG Tab.ER PO SCH (08:04)
[2024-08-31] MEDS: Calcium Carbonate/Vitamin D3 1250 MG-5 MCG Tab PO SCH (08:04)
[2024-09-01] MEDS: Metoprolol Succinate 25 MG Tab.ER PO STA (12:55)
[2024-09-01 18:49] LABS: BASOPHILS ABSOLUTE AUTO 0.04 10^3/uL (0.00-0.50); BASOPHILS PERCENT AUTO 0.5 % (0-1); EOSINOPHILS ABSOLUTE AUTO 0.03 10^3/uL (0.00-1.50); EOSINOPHILS PERCENT AUTO 0.4 % (0-6); HEMATOCRIT 40.2 % (37.0-47.0); HEMOGLOBIN 12.4 g/dL (12.0-16.0); IMMATURE GRAN ABSOLUTE AUTO 0.04 10^3/uL (0.00-0.49); IMMATURE GRAN PERCENT AUTO 0.5 % (0.0-4.9); LYMPHOCYTES ABSOLUTE AUTO 1.72 10^3/uL (0.60-5.00); LYMPHOCYTES PERCENT AUTO 20.1 % (24-44); MEAN CORPUSCULAR HGB CONC 30.8 g/dL (32.0-36.0); MEAN CORPUSCULAR VOLUME 100.5 fL (83.0-97.0); MONOCYTES ABSOLUTE AUTO 0.96 10^3/uL (0.00-1.50); MONOCYTES PERCENT AUTO 11.2 % (0-10); NEUTROPHILS ABSOLUTE AUTO 5.75 x10^3/uL (1.80-8.00); NEUTROPHILS PERCENT AUTO 67.3 % (41-71); PLATELET COUNT,PLT 276 10^3/uL (150-400); WHITE BLOOD CELL COUNT,WBC 8.5 10^3/uL (4.0-11.0)
[2024-09-01 19:06] LABS: ALBUMIN 2.1 g/dL (3.4-5.0); BILIRUBIN TOTAL 0.5 mg/dL (0.0-1.0); CALCIUM 9.9 mg/dL (8.4-10.1); CREATININE 1.2 mg/dL (0.6-1.0); EST CRCL DRUG DOSING (CG) 31.96 mL/min; MAGNESIUM 1.8 mg/dL (1.8-2.4); POTASSIUM,K 3.6 mEq/L (3.5-5.0); PROTEIN TOTAL,TP 6.5 g/dL (6.4-8.2)
[2024-09-01] MEDS: Iopamidol 755 Mg/ML 100 ML Bottle IVPUSH ONE (20:01)
[2024-09-01] MEDS: Oxyquinoline/Emollient 0.3% Oint 4 OZ Canister TOP PRN (23:16)
[2024-09-02] MEDS: Metoprolol Succinate 25 MG Tab.ER PO SCH (07:57)
[2024-09-02] MEDS: MAGNESIUM GLYCINATE 200 MG PO SCH (20:00)
[2024-09-03] MEDS: Mirtazapine 15 MG Tab PO SCH (19:57)
[2024-09-04] MEDS ORDERED: Sennosides/Docusate Sodium 50-8.6 MG Tab PO PRN (08:33)
[2024-09-06 10:52] LABS: BASOPHILS ABSOLUTE AUTO 0.06 10^3/uL (0.00-0.50); BASOPHILS PERCENT AUTO 0.7 % (0-1); EOSINOPHILS ABSOLUTE AUTO 0.03 10^3/uL (0.00-1.50); EOSINOPHILS PERCENT AUTO 0.4 % (0-6); HEMATOCRIT 40.7 % (37.0-47.0); HEMOGLOBIN 12.4 g/dL (12.0-16.0); IMMATURE GRAN ABSOLUTE AUTO 0.02 10^3/uL (0.00-0.49); IMMATURE GRAN PERCENT AUTO 0.2 % (0.0-4.9); LYMPHOCYTES ABSOLUTE AUTO 1.17 10^3/uL (0.60-5.00); LYMPHOCYTES PERCENT AUTO 13.8 % (24-44); MEAN CORPUSCULAR HEMOGLOBIN 30.8 pg (27.0-32.0); MEAN CORPUSCULAR HGB CONC 30.5 g/dL (32.0-36.0); MONOCYTES ABSOLUTE AUTO 0.81 10^3/uL (0.00-1.50); MONOCYTES PERCENT AUTO 9.5 % (0-10); NEUTROPHILS PERCENT AUTO 75.4 % (41-71); PLATELET COUNT,PLT 286 10^3/uL (150-400); RED BLOOD CELL COUNT 4.03 x10^6/uL (4.00-5.50); WHITE BLOOD CELL COUNT,WBC 8.5 10^3/uL (4.0-11.0)
[2024-09-06 11:09] LABS: ALBUMIN 2.1 g/dL (3.4-5.0); BILIRUBIN TOTAL 0.5 mg/dL (0.0-1.0); C-REACTIVE PROTEIN 8.81 mg/dL (<=0.50); CALCIUM 9.8 mg/dL (8.4-10.1); CREATININE 1.2 mg/dL (0.6-1.0); EST CRCL DRUG DOSING (CG) 31.96 mL/min; POTASSIUM,K 4.2 mEq/L (3.5-5.0); PROTEIN TOTAL,TP 6.8 g/dL (6.4-8.2)
[2024-09-06] MEDS: Iopamidol 755 Mg/ML 100 ML Bottle IVPUSH ONE (11:12)
[2024-09-06 16:54] LABS: APPEARANCE,URINE CLEAR (CLEAR); BILIRUBIN,URINE NEGATIVE (NEGATIVE); COLOR,URINE YELLOW (YELLOW); GLUCOSE,URINE NEGATIVE (NEGATIVE); KETONES,URINE NEGATIVE (NEGATIVE); LEUKOCYTE ESTERASE,URINE NEGATIVE (NEGATIVE); NITRITE,URINE NEGATIVE (NEGATIVE); OCCULT BLOOD,URINE NEGATIVE (NEGATIVE); PH,URINE 8.5 (4.5-8.0); PROTEIN,URINE 30 mg/dL (NEGATIVE); UROBILINOGEN,URINE 0.2 EU/dL (0.2-1.0)
[2024-09-06 17:02] LABS: EPITHELIAL CELLS,URINE MODERATE /HPF (NOT SEEN); RBC,URINE 0-5 /HPF (0-5)
[2024-09-06 17:03] LABS: BACTERIA,URINE FEW /HPF (NOT SEEN)
[2024-09-06] MEDS: Mirtazapine 15 MG Tab PO SCH (19:34)
[2024-09-07] MEDS: Acetaminophen 325 MG Tab PO PRN (18:00)
[2024-09-07] MEDS: Lidocaine 2% Viscous Solution 15 ML UD PO ONE (18:40)
[2024-09-10 10:55] LABS: BASOPHILS ABSOLUTE AUTO 0.07 10^3/uL (0.00-0.50); EOSINOPHILS ABSOLUTE AUTO 0.05 10^3/uL (0.00-1.50); EOSINOPHILS PERCENT AUTO 0.7 % (0-6); HEMATOCRIT 36.6 % (37.0-47.0); HEMOGLOBIN 11.2 g/dL (12.0-16.0); IMMATURE GRAN ABSOLUTE AUTO 0.01 10^3/uL (0.00-0.49); IMMATURE GRAN PERCENT AUTO 0.1 % (0.0-4.9); LYMPHOCYTES ABSOLUTE AUTO 0.92 10^3/uL (0.60-5.00); LYMPHOCYTES PERCENT AUTO 13.3 % (24-44); MEAN CORPUSCULAR HEMOGLOBIN 31.4 pg (27.0-32.0); MEAN CORPUSCULAR HGB CONC 30.6 g/dL (32.0-36.0); MEAN CORPUSCULAR VOLUME 102.5 fL (83.0-97.0); MONOCYTES ABSOLUTE AUTO 0.74 10^3/uL (0.00-1.50); MONOCYTES PERCENT AUTO 10.7 % (0-10); NEUTROPHILS ABSOLUTE AUTO 5.14 x10^3/uL (1.80-8.00); NEUTROPHILS PERCENT AUTO 74.2 % (41-71); PLATELET COUNT,PLT 237 10^3/uL (150-400); RED BLOOD CELL COUNT 3.57 x10^6/uL (4.00-5.50); WHITE BLOOD CELL COUNT,WBC 6.9 10^3/uL (4.0-11.0)
[2024-09-10 11:06] LABS: CREATININE 1.1 mg/dL (0.6-1.0); EST CRCL DRUG DOSING (CG) 34.87 mL/min
[2024-09-13] MEDS: Melatonin 3 MG Tab PO SCH (19:37)
[2024-09-16 07:36] LABS: BASOPHILS ABSOLUTE AUTO 0.04 10^3/uL (0.00-0.50); BASOPHILS PERCENT AUTO 0.7 % (0-1); CREATININE 0.8 mg/dL (0.6-1.0); EOSINOPHILS ABSOLUTE AUTO 0.08 10^3/uL (0.00-1.50); EOSINOPHILS PERCENT AUTO 1.3 % (0-6); EST CRCL DRUG DOSING (CG) 47.94 mL/min; HEMATOCRIT 34.8 % (37.0-47.0); HEMOGLOBIN 10.5 g/dL (12.0-16.0); IMMATURE GRAN ABSOLUTE AUTO 0.04 10^3/uL (0.00-0.49); IMMATURE GRAN PERCENT AUTO 0.7 % (0.0-4.9); LYMPHOCYTES ABSOLUTE AUTO 0.77 10^3/uL (0.60-5.00); MEAN CORPUSCULAR HEMOGLOBIN 30.6 pg (27.0-32.0); MEAN CORPUSCULAR HGB CONC 30.2 g/dL (32.0-36.0); MEAN CORPUSCULAR VOLUME 101.5 fL (83.0-97.0); MONOCYTES ABSOLUTE AUTO 0.57 10^3/uL (0.00-1.50); MONOCYTES PERCENT AUTO 9.6 % (0-10); NEUTROPHILS ABSOLUTE AUTO 4.44 x10^3/uL (1.80-8.00); NEUTROPHILS PERCENT AUTO 74.7 % (41-71); PLATELET COUNT,PLT 184 10^3/uL (150-400); RED BLOOD CELL COUNT 3.43 x10^6/uL (4.00-5.50); WHITE BLOOD CELL COUNT,WBC 5.9 10^3/uL (4.0-11.0)
[2024-09-18] MEDS: cefTRIAXone 2 GM Vial IVPUSH ONE (11:27)
[2024-09-18] MEDS: Fluconazole/Normal Saline 200 MG in Premix Bag 1 BAG IV SCH (11:27)
[2024-09-18] MEDS: DAPTOmycin 500 MG Vial IVPUSH ONE (11:29)
[2024-09-19] MEDS: cefTRIAXone 2 GM Vial IVPUSH SCH (07:16)
[2024-09-19] MEDS: DAPTOmycin 500 MG Vial IVPUSH SCH (07:16)
[2024-09-19 07:57] VITALS: BP 167/92; PULSE 89
[2024-09-19 11:50] LABS: BASOPHILS ABSOLUTE AUTO 0.05 10^3/uL (0.00-0.50); BASOPHILS PERCENT AUTO 0.5 % (0-1); EOSINOPHILS ABSOLUTE AUTO 0.07 10^3/uL (0.00-1.50); EOSINOPHILS PERCENT AUTO 0.7 % (0-6); HEMOGLOBIN 12.2 g/dL (12.0-16.0); IMMATURE GRAN ABSOLUTE AUTO 0.03 10^3/uL (0.00-0.49); IMMATURE GRAN PERCENT AUTO 0.3 % (0.0-4.9); LYMPHOCYTES ABSOLUTE AUTO 0.97 10^3/uL (0.60-5.00); LYMPHOCYTES PERCENT AUTO 9.7 % (24-44); MEAN CORPUSCULAR HEMOGLOBIN 30.1 pg (27.0-32.0); MEAN CORPUSCULAR HGB CONC 30.5 g/dL (32.0-36.0); MEAN CORPUSCULAR VOLUME 98.8 fL (83.0-97.0); MONOCYTES ABSOLUTE AUTO 0.67 10^3/uL (0.00-1.50); MONOCYTES PERCENT AUTO 6.7 % (0-10); NEUTROPHILS ABSOLUTE AUTO 8.17 x10^3/uL (1.80-8.00); NEUTROPHILS PERCENT AUTO 82.1 % (41-71); PLATELET COUNT,PLT 307 10^3/uL (150-400); RED BLOOD CELL COUNT 4.05 x10^6/uL (4.00-5.50)
[2024-09-19 12:07] LABS: ALBUMIN 1.7 g/dL (3.4-5.0); BILIRUBIN TOTAL 0.2 mg/dL (0.0-1.0); CALCIUM 9.5 mg/dL (8.4-10.1); CREATININE 1.1 mg/dL (0.6-1.0); EST CRCL DRUG DOSING (CG) 34.87 mL/min; MAGNESIUM 1.8 mg/dL (1.8-2.4); POTASSIUM,K 3.6 mEq/L (3.5-5.0); PROTEIN TOTAL,TP 7.2 g/dL (6.4-8.2)
== END 2024-09-19 15:35 | DRG 948 ==
LOC: CC.MS 13:32 → UNDOADMIN 13:32 → CC.MS 13:56
PROVIDERS: ADMIT Nurse Practitioner; ATTEND Nurse Practitioner
DX: R53.81 Other malaise (principal); L02.01 Cutaneous abscess of face; H26.9 Unspecified cataract; E78.00 Pure hypercholesterolemia, unspecified; I10 Essential (primary) hypertension; K21.9 Gastro-esophageal reflux disease without esophagitis; M19.90 Unspecified osteoarthritis, unspecified site; E03.9 Hypothyroidism, unspecified; D50.9 Iron deficiency anemia, unspecified; E53.8 Deficiency of other specified B group vitamins; Z79.899 Other long term (current) drug therapy
CPT/HCPCS: 36415; 70450; 70487; 80053; 81001; 82140; 82565; 83605; 83735; 84460; 85025; 86140; 87086; 97110-GP; 97161-GP; 97530-GP; A9270-GY; J0295; J0696; J0878; J1450; J1642; Q9967

== ENCOUNTER 2024-12-26 15:10 | Observation (INO) | payer MEDICARE, BC ==
[2024-12-26] MEDS ORDERED: Sodium Chloride 0.9% 10 ML Syringe FLUSH PRN (15:32)
[2024-12-26] MEDS ORDERED: Ondansetron 4 MG Tab.DIS PO PRN (15:32)
[2024-12-26] MEDS ORDERED: Ondansetron 4 MG/2 ML SDV IV PRN (15:32)
[2024-12-26] MEDS: Potassium Chloride 20 MEQ Tab.ER PO ONE (16:32)
[2024-12-26] MEDS: Chlorhexidine Gluconate 0.12% Oral Rinse 15 ML Cup PO SCH (19:41)
[2024-12-27 07:37] LABS: BASOPHILS ABSOLUTE AUTO 0.05 10^3/uL (0.00-0.50); BASOPHILS PERCENT AUTO 0.8 % (0-1); EOSINOPHILS ABSOLUTE AUTO 0.15 10^3/uL (0.00-1.50); EOSINOPHILS PERCENT AUTO 2.4 % (0-6); IMMATURE GRAN ABSOLUTE AUTO 0.01 10^3/uL (0.00-0.49); IMMATURE GRAN PERCENT AUTO 0.2 % (0.0-4.9); LYMPHOCYTES ABSOLUTE AUTO 0.84 10^3/uL (0.60-5.00); LYMPHOCYTES PERCENT AUTO 13.7 % (24-44); MONOCYTES ABSOLUTE AUTO 0.85 10^3/uL (0.00-1.50); MONOCYTES PERCENT AUTO 13.9 % (0-10); NEUTROPHILS ABSOLUTE AUTO 4.23 x10^3/uL (1.80-8.00); NEUTROPHILS PERCENT AUTO 69.0 % (41-71); PLATELET COUNT,PLT 275 10^3/uL (150-400); RED BLOOD CELL COUNT 4.04 x10^6/uL (4.00-5.50); WHITE BLOOD CELL COUNT,WBC 6.1 10^3/uL (4.0-11.0)
[2024-12-27 07:58] LABS: ALANINE AMINOTRANSFERASE,ALT 10.0 U/L (12-78); ASPARTATE AMNIOTRANSFERASE,AST 21.0 U/L (15-37); BILIRUBIN TOTAL 0.3 mg/dL (0.0-1.0); BLOOD UREA NITROGEN,BUN 5.0 mg/dL (7-18); CARBON DIOXIDE,CO2 31.0 mmol/L (21-32); CHLORIDE,CL 105.0 mEq/L (98-106); CREATININE 1.0 mg/dL (0.6-1.0); EST CRCL DRUG DOSING (CG) 40.04 mL/min; GLUCOSE RANDOM 94.0 mg/dL (75-99); POTASSIUM,K 3.9 mEq/L (3.5-5.0); PROTEIN TOTAL,TP 6.1 g/dL (6.4-8.2); SODIUM,NA 141.0 mEq/L (136-145)
[2024-12-27] MEDS ORDERED: AZITHROMYCIN 500 MG PO SCH (08:00)
[2024-12-27] MEDS: Lactobacillus Rhamnosus GG (Probiotic) Cap PO SCH (08:01)
[2024-12-27] MEDS: Potassium Chloride 20 MEQ Tab.ER PO SCH (08:02)
[2024-12-27] MEDS: Cholecalciferol (Vitamin D3) 25 MCG Tab PO SCH (08:02)
[2024-12-27 08:23] LABS: ESTIMATED GFR 58.0 mL/min (>=60)
[2024-12-27] MEDS ORDERED: RIFAMPIN 300 MG PO SCH (12:00)
[2024-12-27 14:04] VITALS: BP 129/83; PULSE 87
== END 2024-12-27 14:00 | disposition home or self-care (01) ==
LOC: CC.MS 15:10 → UNDOADMOB 15:10 → CC.MS 15:30 → UNDOADMOB 15:30 → CC.MS 15:32
PROVIDERS: ADMIT Nurse Practitioner Family; ATTEND Nurse Practitioner Family
DX: R41.0 Disorientation, unspecified (principal); E87.6 Hypokalemia; E78.00 Pure hypercholesterolemia, unspecified; I10 Essential (primary) hypertension; E03.9 Hypothyroidism, unspecified; Z79.890 Hormone replacement therapy; Z79.899 Other long term (current) drug therapy
CPT/HCPCS: 36415; 80053; 85025; A9270-GY; J1650